=== PATIENT | male | born 1960 | race African-American/Black ===

== ENCOUNTER 2017-04-15 10:12 | Emergency (ER) | payer SELFPAY | END 2017-04-15 11:24 | disposition home or self-care (01) | LOC: D.ER 10:12 | DX: H92.01 Otalgia, right ear (principal); K21.9 Gastro-esophageal reflux disease without esophagitis ==

== ENCOUNTER → 2019-01-23 15:26 | Outpatient (CLI) | payer OTHER | END | disposition home or self-care (01) | LOC: D.US 15:26 | PROVIDERS: ATTEND Nurse Practitioner Family | DX: M79.661 Pain in right lower leg (principal) ==